=== PATIENT | female | born 1990 | race Caucasian/White ===

== ENCOUNTER 2021-08-29 05:55 | Inpatient (IN) | payer BC ==
[2021-08-29] MEDS ORDERED: OXYTOCIN 10 UNIT/ML 1 ML VIAL IM PRN (06:14)
[2021-08-29] MEDS ORDERED: TERBUTALINE 1 MG/ML VIAL SQ PRN (06:14)
[2021-08-29] MEDS ORDERED: LIDOCAINE 1% (PF) 10 MG/ML (30 ML SDV) SQ PRN (06:14)
[2021-08-29] MEDS ORDERED: METHYLERGONOVINE 0.2 MG/ML 1 ML AMP IM PRN (06:14)
[2021-08-29] MEDS ORDERED: CARBOPROST TROMETHAMINE 250 MCG/ML 1 ML AMP IM PRN (06:14)
[2021-08-29] MEDS ORDERED: OXYTOCIN 30 UNITS/500 ML NS 30 UNIT in SALINE 1 500ML.BAG IV SCH ×2 (06:15→16:45)
[2021-08-29] MEDS: LACTATED RINGERS 1,000 ML IV SCH ×3 (06:52→16:40)
[2021-08-29 07:00] LABS: Basophils % (A) 0 %; Eosinophils % (A) 0 %; HCT 40.9 % (34.0-46.0); HGB 14.1 gm/dL (11.4-16.0); Lymphocytes # (A) 1.5 k/uL (1.0-4.8); Lymphocytes % (A) 18 %; MCHC 34.6 g/dL (31.0-37.0); MCV 92.7 fL (80.0-100.0); Monocytes # (A) 0.4 k/uL (0-1.0); Monocytes % (A) 4 %; Neutrophils # (A) 6.3 k/uL (1.3-7.7); Neutrophils % (A) 76 %; Platelet Count 222 k/uL (150-450); RBC 4.41 m/uL (3.80-5.40); RDW 13.2 % (11.5-15.5); WBC 8.2 k/uL (3.8-10.6)
[2021-08-29] MEDS ORDERED: BUTORPHANOL 1 MG/ML 1 ML VIAL IV PRN (08:34)
[2021-08-29] MEDS ORDERED: SODIUM CHLORIDE 0.9% 100 ML BAG ONE (09:56)
[2021-08-29] MEDS ORDERED: fentaNYL (PF) 50 MCG/ML 5 ML AMP ONE (09:56)
[2021-08-29] MEDS ORDERED: BUPIVACAINE (PF) 0.25% 30 ML VIAL ONE (09:56)
[2021-08-29] MEDS: PRENATAL VIT-IRON-FOLIC ACID 1 EACH TABLET PO SCH (13:36)
[2021-08-29] MEDS: SERTRALINE 100 MG TAB PO SCH (13:37)
[2021-08-29] MEDS ORDERED: BENZOCAINE/MENTHOL SPRAY 1 GM/SPRAY AEROSOL TOPICAL PRN (16:43)
[2021-08-29] MEDS ORDERED: diphenhydrAMINE 50 MG CAP PO PRN (16:43)
[2021-08-29] MEDS ORDERED: diphenhydrAMINE 50 MG/ML 1 ML VIAL IVP PRN ×2 (16:43)
[2021-08-29] MEDS ORDERED: ACETAMINOPHEN TAB 325 MG TAB PO PRN (16:43)
[2021-08-29] MEDS ORDERED: LANOLIN CREAM 5 GM TUBE TOPICAL PRN (16:43)
[2021-08-29] MEDS ORDERED: ZOLPIDEM 5 MG TAB PO PRN (16:43)
[2021-08-29] MEDS ORDERED: HYDROCORTISONE 2.5% RECTAL CREAM 30 GM TUBE RECTAL PRN (16:43)
[2021-08-29] MEDS ORDERED: SIMETHICONE 80 MG CHEWABLE PO PRN (16:43)
[2021-08-29] MEDS ORDERED: diphenhydrAMINE 25 MG CAP PO PRN (16:43)
[2021-08-29] MEDS ORDERED: IBUPROFEN 600 MG TAB PO SCH (16:45)
--- NOTE | 2021-08-29 16:47 | P.HPOB ---
History of Present Illness H&P Date: 08/29/21 Chief Complaint: IUP at 40 and 5/7 weeks 31-year-old at 40-5/7 weeks that presents for induction of labor secondary to postdates. Patient has been receiving routine care which has been essentially uncomplicated. Patient doesn't have a history of HSV with no current outbreaks and is on Valtrex. Patient notes good movement and occasional contractions denies loss of fluid or vaginal bleeding. bloodwork this patient is blood type of A-, rubella status nonimmune, hep Mayra surface antigen negative, RPR is nonreactive, HIV negative, group beta strep cultures negative. Review of Systems Constitutional: Denies chills, Denies fatigue, Denies fever Ears, nose, mouth and throat: Denies headache Cardiovascular: Reports leg edema Respiratory: Denies dyspnea Gastrointestinal: Denies nausea, Denies vomiting Genitourinary: Reports Past Medical History Additional Past Medical History / Comment(s): HSV, scoliosis History of Any Multi-Drug Resistant Organisms: None Reported Past Surgical History: No Surgical Hx Reported Past Anesthesia/Blood Transfusion Reactions: No Reported Reaction Past Psychological History: ADD/ADHD Smoking Status: Never smoker Past Alcohol Use History: None Reported Past Drug Use History: None Reported - Past Family History Mother Family Medical History: No Reported History Medications and Allergies Home Medications Medication Instructions Recorded Confirmed Type Aspirin 81 mg PO DAILY 08/29/21 08/29/21 History Pnv,Calcium 72/Iron/Folic Acid 1 each PO DAILY 08/29/21 08/29/21 History [ Plus Tablet] Sertraline [Zoloft] 100 mg PO DAILY 08/29/21 08/29/21 History valACYclovir [Valtrex] 500 mg PO DAILY 08/29/21 08/29/21 History Allergies Allergy/AdvReac Type Severity Reaction Status Date / Time amoxicillin [From Augmentin] Allergy Rash/Hives Verified 08/29/21 06:14 clavulanic acid Allergy Rash/Hives Verified 08/29/21 06:14 [From Augmentin] Exam Osteopathic Statement: *. No significant issues noted on an osteopathic structural exam other than those noted in the History and Physical/Consult. 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 Results Result Diagrams: 08/29/21 06:18 Assessment and Plan (1) Post-dates Current Visit: Yes Status: Acute Code(s): O48.0 - POST-TERM SNOMED Code(s): 82853574 Plan: 31-year-old 1 para 0 at 40-5/7 weeks that presents to labor and delivery for elective induction of labor secondary to postdates. Patient is admitted to labor and delivery and Pitocin induction is begun per hospital protocol. Options for analgesia are discussed including Stadol and epidural she will consider. Continue current management.
--- NOTE | 2021-08-29 16:47 | P.PN ---
Progress Note - Text Progress Note Date: 08/29/21 Called to evaluate patient, noted deceleration after epidural recovery with category 1 heart tones appreciated. Approximately 10-15 minutes later deceleration heart tones was noted once again the scalp electrode was applied by RN, heart tones noted to be 60s with recovery into the 90s. Patient remained 4 cm. Pitocin is off O2 is on and patient is to her right lateral side. Patient is noted to be comfortable with her epidural. heart tones are currently category 1 minimal contractions are appreciated.
--- NOTE | 2021-08-29 16:47 | P.PROBDLV ---
Vaginal Delivery Note - . Vaginal Delivery Note: 31-year-old 1 para 0 at 40-5/7 weeks that presented to labor and delivery for induction of labor secondary to postdates. Patient was admitted to labor and delivery and Pitocin induction of labor was begun. Patient was noted to be 3-470 m upon admission. Patient progressed through labor eventually making cervical change and requesting epidural. Epidural was placed without difficulty. Patient had some decelerations after epidural placement that resulting category 1 heart tones were appreciated. Patient went through position changes another heart tone deceleration with good return to baseline. Patient was allowed to continue to labor eventually becoming complete. With excellent maternal effort patient brought the head down to a position. With additional maternal effort the head along with the anterior/posterior shoulder were delivered. The body was delivered in less than the maternal abdomen. A spontaneous cry was noted at . After two-minute delayed the umbo cord was doubly clamped and cut. The placenta was then delivered spontaneously intact with three-vessel cord being noted. On inspection the patient's vaginal vault a right labial laceration was noted along with a first-degree vaginal laceration. The lacerations were injected with lidocaine and repaired with 4-0 chromic for the labial, 3-0 Rapide for the vaginal. Hemostasis was appreciated afterwards. On inspection of the lacera tions they were noted to be hemostatic. Uterus is noted to be at the umbilicus on manual extraction a large amount of clots proximal 100 mL were evacuated from the uterus. Uterus is noted to be firm and below the umbilicus. Once again laceration sites were inspected and found to be hemostatic. Bladder was drained for partially 100 mL of clear yellow urine with a red rubber catheter. All counts were noted be correct 2 at the end of the delivery. Patient and infant tolerated delivery well and are resting comfortably.
[2021-08-29] MEDS ORDERED: MEASLES-MUMPS-RUBELLA VACC/PF 12,500 UNIT/0.5 ML VIAL SQ ONE (19:33)
[2021-08-29] MEDS ORDERED: Rhogam IMMUNE GLOBULIN 1,500 UNIT/1 ML IM ONE (20:32)
[2021-08-29] MEDS: SENNOSIDES-DOCUSATE SODIUM 1 EACH TAB PO SCH (23:53)
[2021-08-29] MEDS: IBUPROFEN 600 MG TAB PO SCH (23:53)
[2021-08-30] MEDS: IBUPROFEN 600 MG TAB PO SCH ×3 (05:59→19:21)
[2021-08-30] MEDS: LACTATED RINGERS 1,000 ML IV SCH ×2 (06:33→18:24)
[2021-08-30] MEDS: PRENATAL VIT-IRON-FOLIC ACID 1 EACH TABLET PO SCH (08:07)
[2021-08-30] MEDS: SENNOSIDES-DOCUSATE SODIUM 1 EACH TAB PO SCH (08:07)
[2021-08-30] MEDS: SERTRALINE 100 MG TAB PO SCH (08:17)
--- NOTE | 2021-08-30 13:36 | P.PNOBGVD ---
Subjective - Subjective Principal diagnosis: day 1, status post normal spontaneous vaginal delivery Interval history: Patient is doing well . She is involuting and voiding without difficulty. She is struggling with breast-feeding, she states her lochia is minimal. She states her pain is well-controlled. Patient reports: Reports pain well controlled, Reports ambulating normally : doing well Objective - Latest Vital Signs Latest vital signs: Vital Signs Temp Pulse Resp BP Pulse Ox 08/30/21 08:54 97.5 F L 99 18 105/73 99 08/30/21 04:00 97.6 F 91 16 123/73 97 08/30/21 00:00 98.4 F 98 16 117/75 98 08/29/21 20:00 98.4 F 112 H 18 118/75 96 08/29/21 18:41 98.3 F 112 H 16 127/71 08/29/21 18:11 118 H 16 126/71 08/29/21 17:41 105 H 16 127/68 08/29/21 17:26 105 H 16 109/66 08/29/21 16:56 130 H 16 140/62 08/29/21 16:41 99.0 F 115 H 16 145/67 Intake and Output 08/29/21 08/30/21 08/30/21 22:59 06:59 14:59 Intake Total 1000 Output Total 300 Balance 700 Intake: IV 1000 Invasive Line 1 500 Output: Output, Quantitative 300 Blood Loss Other: # Voids 1 3 1 - Exam Extremities: Present: normal, edema Abdomen: Present: normal appearance Uterus: Present: normal Assessment and Plan (1) Post-dates Current Visit: Yes Status: Acute Code(s): O48.0 - POST-TERM SNOMED Code(s): 25388509 (2) Status post vaginal delivery Current Visit: Yes Status: Acute Code(s): ZXX5122 - SNOMED Code(s): 753618522 Plan: 31-year-old G1 now P1 status post normal spontaneous vaginal delivery. Patient is doing well . Infant had a small observation time in the nursery for oxygen treatment. is now in the room with mom. Patient is struggling with breast-feeding therefore we will monitor overnight and have the case consultant see her in the morning. Discharge home tomorrow.
[2021-08-30] MEDS ORDERED: SENNOSIDES-DOCUSATE SODIUM 1 EACH TAB PO ONE (15:00)
[2021-08-31] MEDS: SERTRALINE 100 MG TAB PO SCH (07:55)
[2021-08-31] MEDS: PRENATAL VIT-IRON-FOLIC ACID 1 EACH TABLET PO SCH (07:57)
--- NOTE | 2021-08-31 08:50 | P.DS ---
Providers Date of admission: 08/29/21 05:55 Expected date of discharge: 08/31/21 Attending physician: Trista Page Primary care physician: Stated None - Discharge Diagnosis(es) (1) Post-dates Current Visit: Yes Status: Acute (2) Status post vaginal delivery Current Visit: Yes Status: Acute Hospital Course: This is a 31-year-old 1 now para 1 that presented to labor and delivery on 08/29 at 40-5/7 weeks for induction of labor secondary to postdates. Patient was noted to be 3-4 cm upon admission. Patient was admitted to labor and delivery and Pitocin induction of labor was begun per hospital protocol. Patient underwent amniotomy and clear fluid was obtained. Patient progressed through labor eventually becoming uncomfortable and requesting epidural placement. Epidural was placed without difficulty by the anesthesia department. Patient did have a couple episodes of decelerations after the epidural was placed with good return to baseline and category 1 heart tones. Patient eventually progressed to complete began pushing and had a normal spontaneous vaginal delivery of a viable male , weight of 8 lbs. 4 oz., Apgars of 7 and 8 at one and 5 minutes respectly. Initially had an episode of hypoxia therefore was taken to the nursery for oxygen supplementation. Patient was DC'd from the nursery, at 24 hours of age was taken back to the nursery for monitoring again. is currently in the nursery for oxygen/jaundice treatment. Patient is doing well on this postoperative day #2, she is ambulating and voiding without difficulty. She is tolerating a regular diet without nausea or vomiting. Her lochia is moderate. Plan discharge home later today. Patient Condition at Discharge: Good Plan - Discharge Summary New Discharge Prescriptions: No Action Aspirin 81 mg PO DAILY valACYclovir [Valtrex] 500 mg PO DAILY Sertraline [Zoloft] 100 mg PO DAILY Pnv,Calcium 72/Iron/Folic Acid [ Plus Tablet] 1 each PO DAILY Discharge Medication List Aspirin 81 mg PO DAILY 08/29/21 [History] Pnv,Calcium 72/Iron/Folic Acid [ Plus Tablet] 1 each PO DAILY 08/29/21 [History] Sertraline [Zoloft] 100 mg PO DAILY 08/29/21 [History] valACYclovir [Valtrex] 500 mg PO DAILY 05/24/22 [History] Follow up Appointment(s)/Referral(s): Trista Page DO [Doctor of Osteopathic Medicine] - 1 Week Patient Instructions/Handouts: Vaginal Delivery (GEN), Vaginal Delivery (DC) Activity/Diet/Wound Care/Special Instructions: Patient can expect menstrual-like bleeding post . Patient is to follow-up in the office in 4 weeks. [id number] ibuprofen as needed for pain. Should patient have any concerns prior to her appointment she is to call the office. Discharge Disposition: HOME SELF-CARE
[2021-08-31] MEDS: IBUPROFEN 600 MG TAB PO SCH (09:08)
[2021-08-31] MEDS: SENNOSIDES-DOCUSATE SODIUM 1 EACH TAB PO SCH (09:08)
[2021-08-31 09:11] VITALS: PULSE 80; RESP 18
[2021-08-31 17:13] VITALS: BP 132/87; TEMP 98.5
== END 2021-08-31 18:15 | disposition home or self-care (01) | DRG 806 ==
LOC: 4FBP 05:55
PROVIDERS: ADMIT Obstetrics & Gynecology Obstetrics; ATTEND Obstetrics & Gynecology Obstetrics
PROC: 10907ZC Drainage of Amniotic Fluid, Therapeutic from Products of Conception, Via Natural or Artificial Opening (ICD-10-PCS; principal; 2021-08-29)
PROC: 4A1H74Z Monitoring of Products of Conception, Cardiac Electrical Activity, Via Natural or Artificial Opening (ICD-10-PCS; principal; 2021-08-29)
PROC: 3E0R3NZ Introduction of Analgesics, Hypnotics, Sedatives into Spinal Canal, Percutaneous Approach (ICD-10-PCS; principal; 2021-08-29)
PROC: 0HQ9XZZ Repair Perineum Skin, External Approach (ICD-10-PCS; principal; 2021-08-29)
PROC: 10E0XZZ Delivery of Products of Conception, External Approach (ICD-10-PCS; principal; 2021-08-29)
PROC: 00HU33Z Insertion of Infusion Device into Spinal Canal, Percutaneous Approach (ICD-10-PCS; principal; 2021-08-29)
PROC: 10H073Z Insertion of Monitoring Electrode into Products of Conception, Via Natural or Artificial Opening (ICD-10-PCS; principal; 2021-08-29)
PROC: 3E033VJ Introduction of Other Hormone into Peripheral Vein, Percutaneous Approach (ICD-10-PCS; principal; 2021-08-29)
DX: O48.0 Post-term pregnancy (principal); O98.52 Other viral diseases complicating childbirth; Z37.0 Single live birth; O70.0 First degree perineal laceration during delivery; O76 Abnormality in fetal heart rate and rhythm complicating labor and delivery; B00.9 Herpesviral infection, unspecified; O99.344 Other mental disorders complicating childbirth; F90.9 Attention-deficit hyperactivity disorder, unspecified type; O99.892 Other specified diseases and conditions complicating childbirth; M41.9 Scoliosis, unspecified; Z3A.40 40 weeks gestation of pregnancy; Z28.310 Unvaccinated for COVID-19; Z88.1 Allergy status to other antibiotic agents; Z79.82 Long term (current) use of aspirin; Z79.899 Other long term (current) drug therapy
CPT/HCPCS: 85025; 85461; 86850; 86900; 86901; 90707

== ENCOUNTER → 2021-11-16 | Outpatient (CLI) | payer BC ==
[2021-11-16 14:42] LABS: HCT 43.1 % (37.2-46.3); HGB 14.3 g/dL (12.0-15.0); MCHC 33.2 g/dL (32.0-37.0); MCV 90.4 fL (80.0-97.0); Mean Platelet Volume 10.7 fL (9.5-12.2); NRBC Per 100 WBC 0 /100 WBCS (0.0-0.0); Platelet Count 276 X 10*3/uL (140-440); RBC 4.77 X 10*6/uL (4.10-5.20); RDW 11.6 % (11.5-14.5); WBC 4.36 X 10*3/uL (4.50-10.00)
[2021-11-16 14:45] LABS: ALT 25 U/L (8-44); AST 25 U/L (13-35); African American GFR (CKD) 100.1 (60.0-200.0); Albumin 4.4 g/dL (3.8-4.9); Albumin/Globulin Ratio 1.69 (1.60-3.17); Alkaline Phosphatase 54 U/L (41-126); BUN/Creat Ratio 17.33 Ratio (12.00-20.00); Blood Urea Nitrogen 15.6 mg/dL (9.0-27.0); Calcium 9.4 mg/dL (8.7-10.3); Carbon Dioxide 26.9 mmol/L (20.0-27.5); Chloride 103 mmol/L (96-109); Chol/HDL Ratio 3.11 Ratio; Globulin 2.6 g/dL (1.6-3.3); Glucose 77 mg/dL (70-110); LDL Cholesterol,Calculated 111.8 mg/dL (0.0-131.0); Non-African American GFR(CKD) 86.4 (60.0-200.0); Potassium 4.1 mmol/L (3.5-5.5); Sodium 140 mmol/L (135-145)
== END | disposition home or self-care (01) ==
LOC: LABWHC1 08:40
PROVIDERS: ATTEND Internal Medicine
DX: Z00.00 Encounter for general adult medical examination without abnormal findings (principal)
CPT/HCPCS: 36415; 80053; 80061; 84443; 85027

== ENCOUNTER 2024-05-04 05:59 | Inpatient (IN) | payer BC ==
[2024-05-04] MEDS ORDERED: METHYLERGONOVINE 0.2 MG/ML 1 ML AMP IM PRN (06:17)
[2024-05-04] MEDS ORDERED: TRANEXAMIC 1,000 MG/100ML-NACL 1,000 MG in EMPTY BAG 1 BAG IV PRN (06:17)
[2024-05-04] MEDS ORDERED: CARBOPROST TROMETHAMINE 250 MCG/ML 1 ML AMP IM PRN (06:17)
[2024-05-04] MEDS ORDERED: OXYTOCIN 10 UNIT/ML 1 ML VIAL IM PRN (06:17)
[2024-05-04] MEDS ORDERED: TERBUTALINE 1 MG/ML VIAL SQ PRN (06:17)
[2024-05-04] MEDS ORDERED: LIDOCAINE 0.5% (PF) 5 MG/ML (50 ML SDV) SQ PRN (06:17)
[2024-05-04] MEDS ORDERED: miSOPROStoL 200 MCG TAB RECTAL PRN (06:17)
[2024-05-04] MEDS ORDERED: miSOPROStoL 200 MCG TAB PO PRN (06:17)
[2024-05-04] MEDS ORDERED: AMPICILLIN 2,000 MG in SODIUM CHLORIDE 0.9% 100 ML IVPB STA (06:31)
[2024-05-04] MEDS: LACTATED RINGERS 1,000 ML IV SCH (06:34)
[2024-05-04] MEDS: OXYTOCIN 30 UNITS/500 ML NS 30 UNIT in SALINE 1 500ML.BAG IV SCH (06:46)
[2024-05-04 06:47] LABS: Basophils % (A) 1 %; Eosinophils % (A) 1 %; HCT 28.5 % (34.0-46.0); HGB 9.3 gm/dL (11.4-16.0); Hypochromasia Slight; Lymphocytes # (A) 1.5 k/uL (1.0-4.8); Lymphocytes % (A) 21 %; MCH 24.7 pg (25.0-35.0); MCHC 32.8 g/dL (31.0-37.0); MCV 75.5 fL (80.0-100.0); Microcytosis Slight; Monocytes # (A) 0.4 k/uL (0-1.0); Monocytes % (A) 6 %; Neutrophils % (A) 70 %; Platelet Count 238 k/uL (150-450); Poikilocytosis Slight; RBC 3.78 m/uL (3.80-5.40); RDW 15.7 % (11.5-15.5); WBC 7.2 k/uL (3.8-10.6)
[2024-05-04] MEDS ORDERED: fentaNYL (PF) 50 MCG/ML 5 ML AMP ONE (09:22)
[2024-05-04] MEDS ORDERED: ROPIVACAINE 5 MG/ML 30 ML VIAL ONE (09:22)
[2024-05-04] MEDS ORDERED: SODIUM CHLORIDE 0.9% 250 ML BAG ONE (09:22)
[2024-05-04] MEDS ORDERED: AMPICILLIN 1,000 MG in SODIUM CHLORIDE 0.9% 50 ML IVPB SCH (10:45)
[2024-05-04] MEDS ORDERED: BENZOCAINE/MENTHOL SPRAY 1 GM/SPRAY AEROSOL TOPICAL PRN (14:36)
[2024-05-04] MEDS ORDERED: diphenhydrAMINE 25 MG CAP PO PRN (14:36)
[2024-05-04] MEDS ORDERED: diphenhydrAMINE 50 MG/ML 1 ML VIAL IVP PRN ×2 (14:36)
[2024-05-04] MEDS ORDERED: LANOLIN CREAM 1 GM TUBE TOPICAL PRN (14:36)
[2024-05-04] MEDS ORDERED: SIMETHICONE 80 MG CHEWABLE PO PRN (14:36)
[2024-05-04] MEDS ORDERED: diphenhydrAMINE 50 MG CAP PO PRN (14:36)
[2024-05-04] MEDS ORDERED: ZOLPIDEM 5 MG TAB PO PRN (14:36)
[2024-05-04] MEDS ORDERED: HYDROCORTISONE 2.5% RECTAL CREAM 30 GM TUBE RECTAL PRN (14:36)
--- NOTE | 2024-05-04 14:40 | P.HPOB ---
History of Present Illness H&P Date: 05/04/24 Chief Complaint: IUP at 40-0/7 weeks This is a 33-year-old at 40-0/7 weeks that presents to labor and delivery for induction of labor. Patient has been receiving routine care which has been essentially uncomplicated. Patient notes good movement. Patient states she has been trudi through the weekend. She denies vaginal bleeding or loss of fluid On blood work this patient has a blood type of A negative, rubella status nonimmune, hepatitis B surface engine negative, HIV negative, RPR is nonreactive, group beta strep culture is positive Review of Systems Constitutional: Denies chills, Denies fatigue, Denies fever Ears, nose, mouth and throat: Denies headache Cardiovascular: Denies leg edema Respiratory: Denies dyspnea Gastrointestinal: Denies constipation, Denies diarrhea, Denies nausea, Denies vomiting Genitourinary: Reports Past Medical History Additional Past Medical History / Comment(s): HSV, scoliosis History of Any Multi-Drug Resistant Organisms: None Reported Past Surgical History: No Surgical Hx Reported Past Anesthesia/Blood Transfusion Reactions: No Reported Reaction Past Psychological History: ADD/ADHD Smoking Status: Never smoker Past Alcohol Use History: None Reported Past Drug Use History: None Reported - Past Family History Mother Family Medical History: No Reported History Medications and Allergies Home Medications Medication Instructions Recorded Confirmed Type Aspirin 81 mg PO DAILY 08/29/21 08/29/21 History Vit No.180/Iron/Folic 1 each PO DAILY 08/29/21 08/29/21 History [ Plus Tablet] Sertraline [Zoloft] 100 mg PO DAILY 08/29/21 08/29/21 History valACYclovir HCL [Valtrex] 500 mg PO DAILY 08/29/21 08/29/21 History Sertraline [Zoloft] 200 mg PO DAILY 05/04/24 05/04/24 History buPROPion [Wellbutrin] 100 mg PO TID 05/04/24 05/04/24 History Allergies Allergy/AdvReac Type Severity Reaction Status Date / Time amoxicillin [From Augmentin] Allergy Rash/Hives Verified 05/04/24 06:14 clavulanic acid Allergy Rash/Hives Verified 05/04/24 06:14 [From Augmentin] Exam Osteopathic Statement: *. No significant issues noted on an osteopathic structural exam other than those noted in the History and Physical/Consult. Intake and Output 05/03/24 05/04/24 05/04/24 22:59 06:59 14:59 Other: Weight 69.4 kg Targeted physical exam is performed this date General Is a well-nourished well- developed female in no acute distress, breathing is nonlabored, heart has a regular rate and rhythm, abdomen is gravid, on cervical exam she is 4/70/- 2 station amniotomy is performed and copious clear fluid is obtained. Results Result Diagrams: 05/04/24 06:35 Abnormal Lab Results - Last 24 Hours (Table) 05/04/24 Range/Units 06:35 RBC 3.78 L (3.80-5.40) m/uL Hgb 9.3 L (11.4-16.0) gm/dL Hct 28.5 L (34.0-46.0) % MCV 75.5 L (80.0-100.0) fL MCH 24.7 L (25.0-35.0) pg RDW 15.7 H (11.5-15.5) % Assessment and Plan (1) Term Current Visit: Yes Status: Acute Code(s): Z34.90 - ENCNTR FOR SUPRVSN OF NORMAL , UNSP, UNSP TRIMESTER SNOMED Code(s): 30719618 (2) Rh D negative blood type Current Visit: Yes Status: Acute Code(s): Z67.91 - UNSPECIFIED BLOOD TYPE, RH NEGATIVE SNOMED Code(s): 107467578 (3) Positive GBS test Narrative/Plan: Augmentin allergy, will begin Kefzol Current Visit: Yes Status: Acute Code(s): B95.1 - STREPTOCOCCUS, GROUP B, CAUSING DISEASES CLASSD ELSR SNOMED Code(s): 534093792 Plan: 33-year-old G1, P0 at 40-0/7 weeks that presents to labor and delivery for ind uction of labor. Patient is admitted and Pitocin induction of labor is begun. Amniotomy is performed and clear fluid is obtained. Patient is counseled on options for analgesia. She will consider. Antibiotics are begun for positive group beta strep rectovaginal culture Clear liquids as tolerated Continuous monitoring
--- NOTE | 2024-05-04 14:42 | P.PROBDLV ---
Vaginal Delivery Note - . Vaginal Delivery Note: 33-year-old G2, P1 at 40-0/7 weeks that presents to labor and delivery for scheduled induction of labor. Patient is admitted and Pitocin induction of labor is begun. Patient underwent amniotomy and clear fluid was obtained. Patient did request epidural soon after amniotomy. Epidural was placed without difficulty by the anesthesia department. Patient made good progress toward complete dilation. Once completely dilated patient began pushing and had a normal spontaneous vaginal delivery of a viable male infant at 1420, weight of 8 pounds 6 ounces, Apgars of 9 and 9 at 1 and 5 minutes respectively. No vaginal lacerations were appreciated. A prior labial separation was appreciated from her last delivery, no bleeding or repair was needed. After 2-minute delay the umbilical cord was doubly clamped and cut, placenta was delivered spontaneously intact with a three-vessel cord being noted. Uterus was noted be firm below the umbilicus. Bladder was drained for approximately 100 cc of clear yellow urine. A small gush was noted and the uterus firmed with fundal massage. All counts noted be correct x 2. Patient and infant tolerated delivery well and are resting comfortably.
[2024-05-04] MEDS: Rhogam IMMUNE GLOBULIN 1,500 UNIT/1 ML IM ONE (20:42)
[2024-05-04] MEDS: buPROPion 100 MG TAB PO SCH (21:46)
[2024-05-05] MEDS: ACETAMINOPHEN TAB 500 MG TAB PO SCH (01:27)
[2024-05-05] MEDS: IBUPROFEN 800 MG TAB PO SCH (01:27)
[2024-05-05] MEDS: SENNOSIDES-DOCUSATE SODIUM 1 EACH TAB PO SCH (01:28)
[2024-05-05 06:05] LABS: Basophils % (A) 0 %; Eosinophils % (A) 0 %; HCT 27.7 % (34.0-46.0); HGB 9.1 gm/dL (11.4-16.0); Hypochromasia Slight; Lymphocytes # (A) 1.6 k/uL (1.0-4.8); Lymphocytes % (A) 16 %; MCH 24.6 pg (25.0-35.0); MCHC 32.7 g/dL (31.0-37.0); MCV 75.3 fL (80.0-100.0); Mean Platelet Volume 10.8; Microcytosis Slight; Monocytes # (A) 0.4 k/uL (0-1.0); Monocytes % (A) 4 %; Neutrophils # (A) 7.4 k/uL (1.3-7.7); Neutrophils % (A) 77 %; Platelet Count 206 k/uL (150-450); Poikilocytosis Slight; RBC 3.68 m/uL (3.80-5.40); RDW 15.6 % (11.5-15.5); WBC 9.6 k/uL (3.8-10.6)
--- NOTE | 2024-05-05 08:53 | P.PNOBGVD ---
Subjective - Subjective Principal diagnosis: day #1 Interval history: Patient is doing well . She is ambulating and voiding without difficulty. She is tolerating a regular diet without nausea or vomiting. Pain is well-controlled. Lochia is minimal. She is bottlefeeding. Patient reports: Reports appetite normal, Reports voiding normally, Reports pain well controlled, Reports ambulating normally [place]: doing well, bottle feeding Objective - Latest Vital Signs Latest vital signs: Vital Signs Temp Pulse Resp BP Pulse Ox 05/05/24 08:25 98.2 F 90 17 131/86 99 05/05/24 02:34 84 16 05/05/24 00:00 98.2 F 84 16 119/73 98 05/04/24 20:00 98.0 F 99 16 125/84 98 05/04/24 16:34 97 16 121/74 97 05/04/24 16:19 98 16 125/75 100 05/04/24 16:04 95 16 121/74 99 05/04/24 15:49 95 16 125/75 100 05/04/24 15:34 84 16 134/70 100 05/04/24 15:19 95 16 136/78 99 05/04/24 15:04 102 H 16 125/71 95 05/04/24 14:42 95 16 130/71 98 05/04/24 14:34 98.3 F 96 16 135/80 96 Intake and Output 05/04/24 05/05/24 05/05/24 22:59 06:59 14:59 Output Total 185 Balance -185 Output: Output, Quantitative 185 Blood Loss Other: # Voids 1 1 - Exam Extremities: Present: normal, edema Abdomen: Present: normal appearance, soft Uterus: Present: normal, firm - Labs Labs: Abnormal Lab Results - Last 24 Hours (Table) 05/05/24 Range/Units 05:40 RBC 3.68 L (3.80-5.40) m/uL Hgb 9.1 L (11.4-16.0) gm/dL Hct 27.7 L (34.0-46.0) % MCV 75.3 L (80.0-100.0) fL MCH 24.6 L (25.0-35.0) pg RDW 15.6 H (11.5-15.5) % Assessment and Plan (1) Term Current Visit: Yes Status: Acute Code(s): Z34.90 - ENCNTR FOR SUPRVSN OF NORMAL , UNSP, UNSP TRIMESTER SNOMED Code(s): 95819407 (2) Rh D negative blood type Current Visit: Yes Status: Acute Code(s): Z67.91 - UNSPECIFIED BLOOD TYPE, RH NEGATIVE SNOMED Code(s): 675547377 (3) Positive GBS test Current Visit: Yes Status: Acute Code(s): B95.1 - STREPTOCOCCUS, GROUP B, CAUSING DISEASES CLASSD ELSR SNOMED Code(s): 995351150 Plan: Patient is doing well . Plan to continue routine care and anticipate discharge home later today.
[2024-05-05] MEDS ORDERED: buPROPion 100 MG TAB PO SCH (09:00)
[2024-05-05] MEDS: PRENATAL VIT-IRON-FOLIC ACID 1 EACH TABLET PO SCH (10:19)
[2024-05-05 12:25] VITALS: BP 126/74; PULSE 89; RESP 18; TEMP 98
--- NOTE | 2024-05-05 12:33 | P.DS ---
Providers Date of admission: 05/04/24 05:59 Expected date of discharge: 05/05/24 Attending physician: Trista Page Primary care physician: Gina Bravo - Discharge Diagnosis(es) (1) Term Current Visit: Yes Status: Acute (2) Rh D negative blood type Current Visit: Yes Status: Acute (3) Positive GBS test Current Visit: Yes Status: Acute Hospital Course: G2, P1 at 40-0/7 weeks presented yesterday for scheduled induction of labor. Patient has been receiving routine care which has been essentially uncomplicated. For full details in this patient please the dictated history and physical. Patient was admitted to labor and delivery and Pitocin induction of labor was begun. Patient underwent amniotomy and clear fluid was obtained. Patient did request epidural for anesthesia. Epidural was placed without difficulty by the anesthesia department. Patient made good progress toward complete dilation. Once completely dilated she began pushing and had a normal spontaneous vaginal delivery of a viable male weight of 8 pounds 6 ounces. No vaginal lacerations were appreciated after delivery. Patient's course has been uneventful. In this day #1 she is ambulat ing and voiding without difficulty. She is tolerating a regular diet without nausea or vomiting. She states her pain is well-controlled. She would like discharge home at 24 hours of possible. Patient Condition at Discharge: Good Plan - Discharge Summary New Discharge Prescriptions: No Action Aspirin 81 mg PO DAILY Sertraline [Zoloft] 200 mg PO DAILY valACYclovir HCL [Valtrex] 400 mg PO DAILY Vit No.180/Iron/Folic [ Plus Tablet] 1 each PO DAILY buPROPion [Wellbutrin] 150 mg PO ONCE Discharge Medication List Aspirin 81 mg PO DAILY 08/29/21 [History] Vit No.180/Iron/Folic [ Plus Tablet] 1 each PO DAILY 08/29/21 [History] valACYclovir HCL [Valtrex] 400 mg PO DAILY 08/29/21 [History] Sertraline [Zoloft] 200 mg PO DAILY 05/04/24 [History] buPROPion [Wellbutrin] 150 mg PO ONCE 05/04/24 [History] Follow up Appointment(s)/Referral(s): Trista Page DO [Doctor of Osteopathic Medicine] - 06/15/24 2:45 pm Patient Instructions/Handouts: Vaginal Delivery (DC), Vaginal Delivery (GEN) Activity/Diet/Wound Care/Special Instructions: No tub baths or intercourse until 6 weeks . [id number] ibuprofen 600 mg or 3 tablets every 6 hours as needed for pain. Routine visit at 6 weeks. Should she have any concerns prior to this visit she is urged to call the office. Discharge Disposition: HOME SELF-CARE
[2024-05-05] MEDS: SERTRALINE 100 MG TAB PO SCH (15:34)
[2024-05-05] MEDS: buPROPion 100 MG TAB PO SCH (15:34)
== END 2024-05-05 16:34 | disposition home or self-care (01) | DRG 806 ==
LOC: 4FBP 05:59
PROVIDERS: ADMIT Obstetrics & Gynecology Obstetrics; ATTEND Obstetrics & Gynecology Obstetrics
PROC: 10907ZC Drainage of Amniotic Fluid, Therapeutic from Products of Conception, Via Natural or Artificial Opening (ICD-10-PCS; principal; 2024-05-04)
PROC: 10E0XZZ Delivery of Products of Conception, External Approach (ICD-10-PCS; principal; 2024-05-04)
PROC: 3E0234Z Introduction of Serum, Toxoid and Vaccine into Muscle, Percutaneous Approach (ICD-10-PCS; principal; 2024-05-04)
PROC: 3E033VJ Introduction of Other Hormone into Peripheral Vein, Percutaneous Approach (ICD-10-PCS; principal; 2024-05-04)
DX: O26.893 Other specified pregnancy related conditions, third trimester (principal); O98.52 Other viral diseases complicating childbirth; O99.354 Diseases of the nervous system complicating childbirth; O99.344 Other mental disorders complicating childbirth; O99.824 Streptococcus B carrier state complicating childbirth; B00.9 Herpesviral infection, unspecified; M41.9 Scoliosis, unspecified; F90.9 Attention-deficit hyperactivity disorder, unspecified type; Z67.11 Type A blood, Rh negative; Z88.1 Allergy status to other antibiotic agents; Z88.0 Allergy status to penicillin; Z79.899 Other long term (current) drug therapy; Z79.82 Long term (current) use of aspirin; Z3A.40 40 weeks gestation of pregnancy; Z37.0 Single live birth
CPT/HCPCS: 85025; 85461; 86850; 86900; 86901